=== PATIENT | male | born 1955 | race Two or more races ===

== ENCOUNTER 2021-01-04 09:00 | Outpatient (CLI) | payer OTHER | END 2021-01-04 09:04 | disposition home or self-care (01) | LOC: SONOGRAMA 09:00 | PROVIDERS: ATTEND Pathology Anatomic Pathology & Clinical Pathology | DX: E04.1 Nontoxic single thyroid nodule (principal); E07.89 Other specified disorders of thyroid; D34 Benign neoplasm of thyroid gland ==